=== PATIENT | female | born 2000 | race African-American/Black ===

== ENCOUNTER 2021-05-25 09:26 | Emergency (ER) | payer MEDICAID, SELFPAY ==
[2021-05-25 09:33] VITALS: BP 114/64; BP 122/59; PULSE 68; PULSE 80; RESP 16; TEMP 36.9; O2SAT 99; BMI 33.2
[2021-05-25] MEDS: Acetaminophen 325 MG TABLET 650 MG PO (09:46)
[2021-05-25] MEDS: diazePAM 5 MG TABLET PO (09:47)
[2021-05-25] MEDS: Ketorolac Tromethamine 15 MG/ML VIAL 30 MG IM (09:47)
--- NOTE | 2021-05-25 09:48 | ED.NECK ---
HPI - Neck Pain/Injury General Chief Complaint: Neck Pain/Injury Stated Complaint: neck pain Time Seen by Provider: 05/25/21 09:37 Source: patient Mode of arrival: ambulatory History of Present Illness HPI Narrative: 20-year-old female with a past medical history of asthma presenting to the ED complaining of severe left-sided neck pain radiating to left shoulder s/p stretching overhead this morning and hearing a pop. Denies trauma/fall or injury, headache, visual change/loss, numbness, tingling, nausea/vomiting. MD complaint: neck pain Onset (ago): minute(s) Related Data Previous Rx's Medication Instructions Recorded acetaminophen 500 mg tablet 500 mg PO Q6H PRN #20 tab 05/25/21 (Tylenol Extra Strength) cyclobenzaprine 5 mg tablet 5 mg PO Q8H PRN 5 Days #14 tab 05/25/21 lidocaine 5 % topical patch 1 patch TOPICAL DAILY PRN #30 ea 05/25/21 (Lidoderm) MDD remove after 12 hours naproxen 500 mg tablet 500 mg PO BID PRN 10 Days #20 tab 05/25/21 Allergies Allergy/AdvReac Type Severity Reaction Status Date / Time No Known Allergies Allergy Verified 05/25/21 09:36 Review of Systems Review of Systems: Constitutional: No Fever, No Chills, No Malaise ENT/Mouth: No Ear Pain, No Nasal Congestion, No sore throat, No Swallowing Difficulty Eyes: No Eye Pain, No Vision Changes Cardiovascular: No Chest Pain, No SOB Respiratory: No Cough, No Dyspnea Gastrointestinal: No Nausea, No Vomiting, No Abdominal pain Genitourinary: No Dysuria, No Urinary Frequency, No Hematuria Musculoskeletal: +joint pain, No Myalgias, No Joint Swelling Skin: No Skin Lesions, No rash Neuro: No Weakness, No Numbness, No Paresthesias, No Loss of Consciousness, No Dizziness, No Headache Yes all other systems are reviewed and are negative FORMERLY [facility], [facility] Past Medical History Attestation statement: The following information was validated with the patient. Medical History (Updated 05/25/21 @ 13:14 by LEOBARDO Love) Asthma Social History Social History Advance Directives: No Advance Directives Information Provided: No Physical Exam Vital Signs: Vital Signs: Last Vital Signs Temp 98.5 F 05/25/21 09:33 Pulse 52 05/25/21 11:59 Resp 16 05/25/21 11:59 BP 122/65 05/25/21 11:59 Pulse Ox 99 05/25/21 11:59 Body Mass Index 33.2 Const: General: cooperative, healthy appearing and no acute distress Orientation/consciousness: patient oriented x3 Limitations: no limitations HENMT: Head: Yes normal to inspection Ears: hearing grossly normal bilaterally General nose exam: Normal external nose present Face and sinus: Yes normal facial exam Eyes: General: appearance normal, both eyes and all related structures Pupils: Equal, round and reactive pupils present EOM: EOMs intact bilaterally Neck: Other: No midline cervical spinous tenderness/step-off or deformity. + left-sided paraspinal/left-sided neck MSK tenderness to palpation. Reproducing subjective complaint. No facial deformity. Neurovascularly intact distally. Limited ROM of neck and left arm secondary to pain. Neck: Yes normal visual inspection Resp: Effort & Inspection: normal respiratory effort and no respiratory distress Cardio: Rate: regular rate Peripheral pulses: radial pulses present GI: Inspection: Yes normal to inspection Back/Spine/Pelvis: Other: No midline thoracic/lumbar spinous tenderness or step-off/deformity Skin: Rashes: no rashes Wounds: no wounds Neuro: General: patient oriented x3, tone normal and moves all extremities Cranial nerves: Yes CN's II-XII intact bilaterally and Yes Equal, round and reactive pupils present Motor exam (neuro): 5/5 motor strength present throughout Extrem: General: Yes normal to inspection Course Course Course Narrative: -after initial re-evaluation patient reported mild symptomatic improvement, had increased mobility but still restricted motion when moving neck to leftward. Will additionally give 10mg of p.o. Flexeril. -1312--on re-evaluation patient is sleeping comfortably. Upon waking reports symptomatic improvement. Has FROM neck and LUE. Discussed with patient worrisome signs and symptoms and strict return precautions. Plan to DC with p.o. medications and close PCP follow-up, she verbalized understanding and feels safe for discharge MDM - Neck Pain/Injury MDM Narrative Medical decision making narrative: 20-year-old female with a past medical history of asthma presenting to the ED complaining of severe left-sided neck pain radiating to left shoulder s/p stretching overhead this morning and hearing a pop. On exam VSS, NAD, tearful, physical exam as above. No midline spinous tenderness throughout. Concern for MSK pain/strain/muscle spasming. Cervical call removed. Low concern for cervical dissection/bony abnormality. Plan: Symptomatic treatment, reassess Medical Records Attestation: I reviewed the patient's medical records. Lab Data Attestation: I reviewed the patient's lab results. Discharge Plan Discharge Clinical Impression: Torticollis Strain of neck muscle Qualifiers: Encounter type: initial encounter Qualified Code(s): S16.1XXA - Strain of muscle, fascia and tendon at neck level, initial encounter Patient Disposition: Home, Self-Care Instructions: Cervical Strain (ED) Additional Instructions: Your pain is likely musculoskeletal Flexeril is a muscle relaxer, take at night as it makes you drowsy, do not drive, drink alcohol, or operate machinery while taking it Naproxen as an anti-inflammatory / pain medication, take with food Lidoderm patches are numbing patches, apply to painful area In addition take Tylenol at home If symptoms persist or worsen, pain becomes unbearable, you developed urinary retention or incontinence, or weakness return to the ED Prescriptions: New acetaminophen [Tylenol Extra Strength] 500 mg tablet 500 mg PO Q6H PRN (Reason: pain or fever) Qty: 20 RF: 0 lidocaine [Lidoderm] 5 % adhesive patch,medicated 1 patch topical DAILY MDD remove after 12 hours PRN (Reason: pain) Qty: 30 RF: 0 naproxen 500 mg tablet 500 mg PO BID PRN (Reason: pain) 10 Days Qty: 20 RF: 0 cyclobenzaprine 5 mg tablet 5 mg PO Q8H PRN (Reason: pain (scale score 7-10)) 5 Days Qty: 14 RF: 0 Referrals: Physician,None [Primary Care Provider] - 2 days
--- NOTE | 2021-05-25 11:18 | PC.NURSE ---
Pt now states pain has decreased to 8/10, more relaxed in appearance, no longer tearful. Leticia daniel
[2021-05-25] MEDS: Lidocaine 4 % Patch ADH..PATCH 1 PATCH TRANSDERMA (11:55)
[2021-05-25] MEDS: Cyclobenzaprine HCl 10 MG TABLET PO (11:55)
[2021-05-25 11:59] VITALS: BP 122/65; PULSE 52; RESP 16; O2SAT 99
== END 2021-05-25 13:47 | disposition home or self-care (01) ==
PROVIDERS: Emergency Provider Student in an Organized Health Care Education/Training Program
DX: S16.1XXA Strain of muscle, fascia and tendon at neck level, initial encounter (principal); M43.6 Torticollis; X58.XXXA Exposure to other specified factors, initial encounter; Y93.9 Activity, unspecified; Y92.9 Unspecified place or not applicable; Y99.9 Unspecified external cause status; Z79.899 Other long term (current) drug therapy
CPT/HCPCS: 96372; 99284; J1885

== ENCOUNTER 2022-02-06 23:26 | Emergency (ER) | payer MEDICAID, SELFPAY ==
[2022-02-06 23:59] VITALS: BP 139/75; PULSE 75; RESP 16; TEMP 36.2; O2SAT 99; BMI 31.2
[2022-02-07 00:49] LABS: Appearance Urine CLEAR; Color Urine STRAW; Glucose Urine UA NEG (NEG); Leukocyte Esterase Urine TRACE (NEG); Nitrite Urine NEG (NEG); PH 6.5 (5.0-8.0); Specific Gravity - Urine <= 1.005 (1.005-1.025); Urine Blood NEG (NEG); Urine Ketones NEG (NEG); Urine Protein NEG (NEG-TRACE)
[2022-02-07 00:58] LABS: RBC Urine 0 /HPF (0); Renal Epithelial Cells Urine TRACE /LPF; Squamous Epithelial Cell Urine TRACE /LPF; WBC Urine 0-2 /HPF (0-4)
[2022-02-07 00:59] LABS: Calcium Phosphate Crystals Ur 1+ /LPF
[2022-02-07 02:16] LABS: CT PCR NOT DETECTED (Not Detect.); NG PCR NOT DETECTED (Not Detect.)
--- NOTE | 2022-02-07 05:15 | ED.FEMALEGU ---
HPI - Female Genitourinary General Chief complaint: Urogenital-Female Stated complaint: Std check Time Seen by Provider: 02/07/22 05:11 Source: patient Mode of arrival: ambulatory Limitations: no limitations History of Present Illness HPI Narrative: 21-year-old female came in for evaluation for possible STD exposure. Patient had unprotected sexual intercourse with somebody 3 weeks ago presented today with rash in vaginal area that is painful with urination, decline discharge, no fever, no chills. Related Data Previous Rx's Medication Instructions Recorded acetaminophen 500 mg tablet 500 mg PO Q6H PRN #20 tab 05/25/21 (Tylenol Extra Strength) cyclobenzaprine 5 mg tablet 5 mg PO Q8H PRN 5 Days #14 tab 05/25/21 lidocaine 5 % topical patch 1 patch TOPICAL DAILY PRN #30 ea 05/25/21 (Lidoderm) MDD remove after 12 hours naproxen 500 mg tablet 500 mg PO BID PRN 10 Days #20 tab 05/25/21 valacyclovir 500 mg tablet 500 mg PO BID #20 tab 02/07/22 (Valtrex) Allergies Allergy/AdvReac Type Severity Reaction Status Date / Time No Known Allergies Allergy Verified 02/07/22 00:01 Review of Systems Review of Systems: All other systems are reviewed and are negative Constitutional: Reports as per HPI and Reports no additional constitutional complaints Eyes: Reports as per HPI and Reports no additional eye complaints Reports system reviewed and no additional complaints, except as documented Cardiovascular: Reports as per HPI and Reports no additional cardiovascular complaints Respiratory: Reports as per HPI and Reports no additional respiratory complaints Gastrointestinal: Reports as per HPI and Reports no additional gastrointestinal complaints Genitourinary: Reports no additional female genitourinary complaints Musculoskeletal: Reports no additional musculoskeletal complaints Skin/Breast: Reports system reviewed and no additional complaints, except as docu Psychiatric: Reports no additional psychiatric complaints Endocrine: Reports no additional endocrine complaints Hematologic/Lymphatic: Reports no additional hematologic/lymphatic complaints Allergic/Immunologic: Reports no additional allergic/immunologic complaints Reports system reviewed and no additional complaints, except as documented and Reports Abnormal speech present [facility] Past Medical History Medical History Asthma Social History Social History Advance Directives: No Physical Exam Vital Signs: Vital Signs: Last Vital Signs Temp 97.1 F 02/06/22 23:59 Pulse 75 02/06/22 23:59 Resp 16 02/06/22 23:59 BP 139/75 02/06/22 23:59 Pulse Ox 99 02/06/22 23:59 BMI result Body Mass Index 31.2 Vital signs have been reviewed as appeared to be correct. Blood pressure normal. Heart rate normal. Respiration rate normal. Temperature normal. Oxygen saturation normal. Appearance: Alert. Oriented X3. No acute distress. Head: Normal external exam. Normocephalic. Atraumatic. No Hammond signs noted. No raccoon eyes noted Eyes: PERRLA. EOMI. Conjunctiva and sclera normal. Eyelids normal. ENT: TM's Normal. Pharynx normal. Uvula midline. Moist mucous membranes. No trismus noted. No drooling noted. No muffled voice noted. Neck: Normal inspection. Neck supple. FROM. No adenopathy. Thyroid Normal. No meningeal signs. No neck mass noted. CVS: Normal heart rate and rhythm. Heart sound normal. No murmurs noted. Pulses normal throughout. Respiratory: No respiratory distress. Painless inspiration. Breath sounds normal. No wheezes/rales/rhonchi noted. Chest nontender. No accessory muscle usage noted or decreased air movement noted. Abdomen: Soft and nontender. Bowel sounds normal in all 4 quadrants. No distention noted. No organomegaly noted. No visible injury noted. 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 Back: No CVA tenderness. Full range of motion noted. Skin: Skin warm and dry. Normal skin color. Normal skin turgor. No rashes/lesions/lacerations noted. Extremities: No lower extremity edema. Extremities exhibit normal range of motion. Extremities nontender. Neuro: Oriented X 3. Cranial nerve exam: II-XII are grossly intact No motor deficit. No sensory deficit. Reflexes normal. Course Course Course Narrative: Assessment and plan. 21-year-old female history of unprotected sex 4 weeks ago presented with ulcerative lesion on her labia concerning of herpes infection, will start the patient on antiviral and follow-up with OBGYN for the rest of the cultures, patient is negative for GC and chlamydia. [facility] - Female Genitourinary Lab Data Labs: Lab Results 02/07/22 02/07/22 Range/Units 00:40 00:40 Urine Color STRAW Urine Appearance CLEAR Urine pH 6.5 (5.0-8.0) Ur Specific [place] <= 1.005 (1.005-1.025) Urine Protein NEG (NEG-TRACE) MG/DL Urine Glucose (UA) NEG (NEG) MG/DL Urine Ketones NEG (NEG) MG/DL Urine Blood NEG (NEG) Urine Nitrite NEG (NEG) Ur Leukocyte Esterase TRACE H (NEG) Urine RBC 0 (0) /HPF Urine WBC 0-2 (0-4) /HPF Ur Squamous Epith Cells TRACE /LPF Ur Renal Epithelial Cell TRACE /LPF Calcium Phosphate Cryst 1+ /LPF Urine Bacteria NONE /LPF Chlam trachomat DNA PCR NOT DETECTED (Not Detect.) N.gonorrhoeae DNA (PCR) NOT DETECTED (Not Detect.) Discharge Plan Discharge Clinical Impression: Exposure to STD Patient Disposition: Home, Self-Care Instructions: Postexposure Prophylaxis (ED) Prescriptions: New valacyclovir [Valtrex] 500 mg tablet 500 mg PO BID Qty: 20 0RF No Action acetaminophen [Tylenol Extra Strength] 500 mg tablet 500 mg PO Q6H PRN (Reason: pain or fever) Qty: 20 0RF lidocaine [Lidoderm] 5 % adhesive patch,medicated 1 patch topical DAILY MDD remove after 12 hours PRN (Reason: pain) Qty: 30 0RF Rx Instructions: leave on most painful area for up to 12 hrs naproxen 500 mg tablet 500 mg PO BID PRN (Reason: pain) 10 Days Qty: 20 0RF cyclobenzaprine 5 mg tablet 5 mg PO Q8H PRN (Reason: pain (scale score 7-10)) 5 Days Qty: 14 0RF Referrals: Erlin Spears MD [Physician] -
[2022-02-07 05:45] VITALS: BP 134/76; PULSE 98; RESP 18; TEMP 37.1; O2SAT 98
[2022-02-07 06:38] VITALS: BP 134/74; PULSE 90; RESP 16; TEMP 37.1; O2SAT 98
[2022-02-07 09:19] LABS: BV Int Neg Control Negative (Negative); BV Int Pos Control Positive (Positive)
[2022-02-08 07:14] LABS: Syphilis Screen Reactive (Nonreactive)
[2022-02-09 05:02] LABS: Herpes Simplex Type 1 IgG 6.28 index; Herpes Simplex Type 2 IgG <0.90 index
[2022-02-16 14:01] LABS: RPR Quantitative Reactive 1:2 (Nonreactive); T.Pallidum Particle Agg Test Reactive (Nonreactive)
== END 2022-02-07 07:07 | disposition home or self-care (01) ==
PROVIDERS: Emergency Provider Emergency Medicine
DX: Z20.2 Contact with and (suspected) exposure to infections with a predominantly sexual mode of transmission (principal)
CPT/HCPCS: 36415; 81001; 86592; 86695; 86696; 86780; 87255; 87480; 87491; 87510; 87591; 87660; 99283

== ENCOUNTER 2022-02-09 10:21 | Emergency (ER) | payer MEDICAID, SELFPAY ==
[2022-02-09 11:01] VITALS: BP 117/68; PULSE 92; RESP 18; TEMP 36.7; O2SAT 96; BMI 31.2
[2022-02-09] MEDS: Penicillin G Benzathine 2,400,000 UNIT/4 ML SYRINGE 2400000 UNIT IM (11:24)
--- NOTE | 2022-02-09 11:40 | ED_ITS ---
HPI - General Adult General Chief complaint: General Medical Stated complaint: std check up Time Seen by Provider: 02/09/22 10:36 Source: patient Mode of arrival: ambulatory Limitations: no limitations History of Present Illness HPI narrative: 21-year-old female presents to the ER for treatment of STI. Upon evaluation of her recent lab workup and lab results, she has tested positive for the 1st time for syphilis. Confirmatory testing has been sent to the state. She is also found to be positive for Trichomonas as well as positive HSV 1 antibody. She has been prescribed valacyclovir on her previous visit on the . She reports ongoing painless vaginal lesions. They started a couple of weeks ago and her only painful when she urinates. No burning sensation. She has been compliant with the herpes treatment. She denies history of rash on the palms or soles of her feet. She denies history of syphilis in the past. She reports all of her symptoms started after she had unprotected sex with a male in December. She has been unable to contact him, he blocked her on all social media counts. MD complaint: STI treatment Onset (ago): week(s) Location: genitals Radiation: non-radiation Severity: moderate Quality: stabbing Pain Consistency: intermittent Relieving factors: none Exacerbating factors: other (Urination) Associated symptoms: other (Anxiety) Treatments prior to arrival: none Related Data Previous Rx's Medication Instructions Recorded acetaminophen 500 mg tablet 500 mg PO Q6H PRN #20 tab 05/25/21 (Tylenol Extra Strength) cyclobenzaprine 5 mg tablet 5 mg PO Q8H PRN 5 Days #14 tab 05/25/21 lidocaine 5 % topical patch 1 patch TOPICAL DAILY PRN #30 ea 05/25/21 (Lidoderm) MDD remove after 12 hours naproxen 500 mg tablet 500 mg PO BID PRN 10 Days #20 tab 05/25/21 valacyclovir 500 mg tablet 500 mg PO BID #20 tab 02/07/22 (Valtrex) metronidazole 500 mg tablet 500 mg PO BID 7 Days #14 tab 02/09/22 Allergies Allergy/AdvReac Type Severity Reaction Status Date / Time No Known Allergies Allergy Verified 02/09/22 11:01 Review of Systems Review of Systems: Constitutional: No Fever, No Chills ENT/Mouth: No sore throat, No Rhinorrhea Cardiovascular: No Chest Pain, No SOB Gastrointestinal: No Nausea, No Vomiting, No Diarrhea, No abdominal Pain Genitourinary: No Dysuria, No Urinary Frequency, No Hematuria, No vaginal d ischarge Musculoskeletal: No joint pain, No Myalgias Skin: + Skin Lesions, No rash Neuro: No Weakness, No Numbness, , No Headache Psych: + Anxiety/Panic, + Depression Heme/Lymph: No Bruising, No Lymphadenopathy PMFSH Past Medical History Medical History Asthma Social History Social History Advance Directives: No Advance Directives Information Provided: No Physical Exam ED Vital Signs: Vital Signs - 24 hr 02/09/22 11:01 Temperature 98.1 F Pulse Rate 92 Respiratory Rate 18 Blood Pressure 117/68 Pulse Oximetry 96 BMI result Body Mass Index 31.2 Appearance: Alert. Oriented X3. Tearful and upset HEENT: normal inspection CVS: Normal heart rate and rhythm. Pulses normal. Respiratory: No respiratory distress. Skin: Skin warm and dry. Normal skin color. Normal skin turgor. No rashes. . External genitalia with 2 areas of ulcerative lesions, located at the lateral aspect of the vaginal introitus at 06:00 o'clock position as well as the 3 o'clock position area was are nontender, no fluid-filled vesicles. Extremities: Normal inspection x4 Neuro: Oriented X 3. Grossly normal, nonfocal Course Course Course Narrative: 21-year-old female presenting for STI treatment she was found to be positive for syphilis and denies any history of this in the past. She has painless lesions on her genitalia that initially were concerning for herpes although may be a chancre. Will treat for early stage syphilis with 2.4 million units of intramuscular penicillin. She has been referred to Dr. Villavicencio for further treatment and evaluation. She will need follow-up with ID and financial advisor trainee. She will need HIV testing as well. She was counseled extensively at the bedside about her disease, need for follow-up and close monitoring. She expressed understanding and is stable for discharge home. Case and treatment plan were discussed with Dr. Vegas Critical Care Time Critical Care Time Critical Care Time: No Discharge Plan Discharge Clinical Impression: Syphilis Patient Disposition: Home, Self-Care Additional Instructions: Take the prescribed antibiotic for 1 week, this was sent to your pharmacy today. Your treated for early stage syphilis. Recommend following up with the Infectious Disease doctor for monitoring and further evaluation. Follow-up with a kinesiology internship next week. If your herpes culture is positive we will call you. Continue to take the antiviral medications. No sexual activity while you have active lesions. Recommend following up with the [facility] for HIV testing as well. If you develop new or worsening symptoms call 911 or come back to the ER for further evaluation. Prescriptions: No Action acetaminophen [Tylenol Extra Strength] 500 mg tablet 500 mg PO Q6H PRN (Reason: pain or fever) Qty: 20 0RF lidocaine [Lidoderm] 5 % adhesive patch,medicated 1 patch topical DAILY MDD remove after 12 hours PRN (Reason: pain) Qty: 30 0RF Rx Instructions: leave on most painful area for up to 12 hrs naproxen 500 mg tablet 500 mg PO BID PRN (Reason: pain) 10 Days Qty: 20 0RF cyclobenzaprine 5 mg tablet 5 mg PO Q8H PRN (Reason: pain (scale score 7-10)) 5 Days Qty: 14 0RF valacyclovir [Valtrex] 500 mg tablet 500 mg PO BID Qty: 20 0RF metronidazole 500 mg tablet 500 mg PO BID 7 Days Qty: 14 0RF Referrals: Barbi Villavicencio MD [Physician] - (early primary syphilis) Stand Alone Forms: Work/School Release Interventions: ED Discharge Assessment Last Done: 02/09/22 11:59 Discharge Date/Time: 02/09/22 12:01
== END 2022-02-09 12:01 | disposition home or self-care (01) ==
PROVIDERS: Emergency Provider Emergency Medicine Emergency Medical Services
DX: A53.9 Syphilis, unspecified (principal); A60.04 Herpesviral vulvovaginitis; F41.1 Generalized anxiety disorder; R30.0 Dysuria; F43.0 Acute stress reaction; Z79.899 Other long term (current) drug therapy
CPT/HCPCS: 96372; 99283; 99284; J0561